=== PATIENT | male | born 1975 | race Caucasian/White ===

== ENCOUNTER 2018-07-21 22:23 | Emergency (ER) | payer OTHER ==
[~2018-07-21] VITALS: Ht 175.3 cm; Wt 131.5 kg
[~2018-07-21 22:23] MED LIST: BACTRIM DS TAB1 EACH PO; IBUPROFEN 400400 M2 PO; KEFLEX500 MG PO; NORCO 5-325 TA1 EACH PO; PEPCID40 MG PO; PREDNISONE 20 M20 M1 PO
[2018-07-21] MEDS ORDERED: KEFLEX500 M1 PO (22:50)
[2018-07-21] MEDS ORDERED: BACTRIM DS TAB1 EACH PO (22:50)
[2018-07-21 23:33] VITALS: BP 169/109
== END 2018-07-21 23:36 | disposition home or self-care (01) ==
LOC: M.ERS 22:23
DX: H60.02 Abscess of left external ear (principal)

== ENCOUNTER 2018-07-26 11:42 | Emergency (ER) | payer OTHER ==
[~2018-07-26] VITALS: Ht 175.3 cm; Wt 131.1 kg
[~2018-07-26 11:42] MED LIST changes: +KEFLEX500 M1 PO
[2018-07-26 11:49] VITALS: BP 150/91
[2018-07-26] MEDS ORDERED: KEFLEX500 M1 PO (12:41)
== END 2018-07-26 12:34 | disposition home or self-care (01) ==
LOC: M.ERS 11:42
DX: L72.3 Sebaceous cyst (principal)